=== PATIENT | male | born 1995 | race Caucasian/White ===

== ENCOUNTER 2022-12-30 22:26 | Emergency (ER) | payer BC, SELFPAY ==
--- NOTE | ~2022-12-30 | XR_ITS ---
EXAMINATION: XR chest 2V DATE: 12/30/2022 23:19 INDICATION: Upper chest pain TECHNIQUE: PA and lateral views of the chest were obtained. COMPARISON: None FINDINGS: The lungs are clear with no focal airspace opacities, pulmonary edema, pleural effusion or pneumothor ax. The cardiomediastinal silhouette is normal. Visualized bones and soft tissues are unremarkable. IMPRESSION: 1. No acute cardiopulmonary disease. Reviewed, dictated and finalized at location A. H CUTTING MACHINE OPERATOR
--- NOTE | 2022-12-30 22:29 | ECG_ITS ---
Measurements Intervals [place] Rate: 72 P: 15 ND: 156 QRS: 32 QRSD: 99 T: 8 QT: 373 QTc: 410 Interpretive Statements SINUS RHYTHM RSR' V1 BORDERLINE ECG NO PREVIOUS ECG AVAILABLE FOR COMPARISON Electronically Signed On 12-31-2022 15:09:08 [employer]IDE [employer]ITORY [employer]NAGER by Jose Alejandro Martini M.D.
[2022-12-30 22:40] VITALS: BP 133/94; PULSE 71; RESP 18; TEMP 36.6; O2SAT 100
[2022-12-30 22:49] LABS: Basophils Absolute Auto 0.1 K/mm3 (0.0-0.1); Basophils Percent Auto 1.1 % (0.2-1.2); Eosinophils Absolute Auto 0.1 K/mm3 (0-0.3); Eosinophils Percent Auto 1.2 % (0-4.4); Hematocrit 46.6 % (42.0-52.0); Hemoglobin 15.9 g/dL (14.0-18.0); Immature Granulocyte Absolute 0.01 K/mm3 (0.00-0.031); Immature Granulocyte Percent A 0.2 % (0-0.5); Lymphocytes Absolute Auto 2.64 K/mm3 (0.9-3.2); Lymphocytes Percent Auto 39.9 % (18.3-44.2); Mean Corpuscular HGB Conc 34.1 g/dl (32-36); Mean Corpuscular Hemoglobin 28.4 pg (26-34); Mean Corpuscular Volume 83.2 fl (80-100); Mean Platelet Volume 10.1 fl (7.4-10.4); Monocytes Absolute Auto 0.5 K/mm3 (0.1-0.6); Monocytes Percent Auto 7.1 % (2.6-8.5); Neutrophils Absolute Auto 3.3 K/mm3 (1.3-6.7); Neutrophils Percent Auto 50.5 % (45.5-73.1); Platelet Count Result 329 k/mm3 (150-375); Red Cell Distribution Width 12.5 % (11.5-14.5); White Blood Count 6.6 K/mm3 (4.5-10.0)
[2022-12-30 23:02] LABS: Alanine Aminotransferase 126 U/L (6-50); Albumin Level 4.8 g/dL (3.5-5.1); Alkaline Phosphatase 78 U/L (38-126); Anion Gap 9 mmol/L (8-16); Aspartate Amino Transferase 55 U/L (17-59); Bilirubin,Total 0.6 mg/dL (0.2-1.3); Blood Urea Nitrogen 11 mg/dL (9-20); Calcium 9.5 mg/dL (8.4-10.2); Carbon Dioxide 27 mmol/L (22-30); Chloride 96 mmol/L (98-107); Estimated CRCL calculation 171 ml/min; Estimated Glomerular Filt Rate > 60; Glucose 309 mg/dL (65-110); Lipase 102 U/L (23-300); Partial Thromboplastin Time 24.9 SECONDS (22.3-36.8); Prothrombin Time 12.5 Seconds (11.1-14.7); Sodium 132 mmol/L (137-145)
[2022-12-30 23:17] LABS: Troponin I < 0.012 ng/mL (0.000-0.034)
--- NOTE | 2022-12-30 23:56 | ED.CHESTPAIN ---
HPI - Chest Pain General Chief Complaint: Chest Pain <DES Weiner Last Filed: 12/31/22 00:14> Stated Complaint: chest pain <DES Weiner Last Filed: 12/31/22 00:14> Time Seen by Provider: 12/30/22 23:54 <DES Weiner Last Filed: 12/31/22 00:14> History of Present Illness HPI narrative: Patient is a 27-year-old healthy male here for evaluation of chest pain over the past 5 days. He describes the sensation as a tightness/burning in the center of his chest. He will occasionally radiate up over his left chest. Denies exertional component to pain, he has been going to the gym frequently over the past several days and the pain is not worse when he is doing cardio. He denies any shortness of breath, cough, fevers, chills, nausea, vomiting. Presents to the ED due to concerns over family history of MS in father. <DES Weiner Last Filed: 12/31/22 00:14> Related Data Allergies/Adverse Reactions: Allergies Allergy/AdvReac Type Severity Reaction Status Date / Time No Known Allergies Allergy Verified 12/30/22 22:52 <DES Weiner Last Filed: 12/31/22 00:14> Review of Systems Review of Systems: Gen.: Denies fevers or chills Eyes: Denies eye pain or visual change ENT: Denies congestion Respiratory: Denies shortness of breath or cough CV: Reports chest pain GI: Denies abdominal pain nausea, emesis or diarrhea denies burning, urgency, frequency or hematuria Musculoskeletal: Denies back pain or muscle pain Neuro: Denies numbness, tingling, weakness or focal weakness Skin: Denies rash Except as documented, all other systems reviewed and negative <DES Weiner Last Filed: 12/31/22 00:14> Exam Narrative: APPEARANCE: Well appearing, no pain in distress, well-nourished. Head: Normocephalic and atraumatic. EYES: PERRLA/EOMI, conjunctivae clear NOSE: No nasal drainage EARS: External ear normal in appearance THROAT: Oropharynx is clear. Mucous membranes are moist. NECK: Supple. No adenopathy, no masses. RESPIRATORY: Airway patent, respirations nonlabored. Clear to auscultation bilaterally, no rales, rhonchi, wheezing. CARDIOVASCULAR: Regular rate and rhythm without murmurs, rubs, or gallops. ABDOMINAL: Normoactive bowel sounds. Soft, nontender, nondistended. No rebound tenderness or guarding. MUSCULOSKELETAL: Extremities are warm and well-perfused. Moves all extremities well. No edema. NEURO: Normal speech. No focal neurologic deficits. SKIN: Skin is warm and dry. No rashes. PSYCHIATRIC: Normal affect/mood.. <Mae Anguiano PA-C - Last Filed: 12/31/22 00:14> Course SERGER/PA Physician Supervision For this encounter, I have reviewed the mid-level provider documentation, treatment plan and medical decision making. I have had [id number] time with the patient. Physical exam revealed an anxious appearing male sitting in bed. Patient's chest pain workup was negative including 2- troponins in a regular chest x-ray. His glucose was elevated at 309. Patient may have new onset diabetes. No evidence of DKA /HHS. Encouraged follow-up with his primary care physician for further management. . All questions answered. Patient in agreement w/ disposition. <Jc Urias MD - Last Filed: 12/31/22 03:44> Vital Signs Vital signs: Vital Signs Temperature 97.8 F 12/30/22 22:40 Pulse Rate 71 12/30/22 22:40 Respiratory Rate 18 12/30/22 22:40 Blood Pressure 133/94 H 12/30/22 22:40 Pulse Oximetry 100 12/30/22 22:40 Oxygen Delivery Room Air 12/30/22 22:40 Temperature 97.8 F 12/30/22 22:40 Pulse Rate 73 12/31/22 00:32 Respiratory Rate 17 12/31/22 00:32 Blood Pressure 136/85 12/31/22 00:08 Pulse Oximetry 98 12/31/22 00:32 Oxygen Delivery Room Air 12/30/22 22:40 <Mae Anguiano PA-C - Last Filed: 12/31/22 00:14> Vital Signs Temperature 9
[2022-12-31 00:06] VITALS: RESP 17; O2SAT 99
[2022-12-31 00:08] VITALS: BP 136/85; PULSE 71; RESP 18; O2SAT 99
[2022-12-31 00:09] VITALS: PULSE 75; RESP 14; O2SAT 98
[2022-12-31 00:26] VITALS: PULSE 74; RESP 14; O2SAT 97
[2022-12-31 00:32] VITALS: PULSE 73; RESP 17; O2SAT 98
== END 2022-12-31 00:46 | disposition home or self-care (01) ==
PROVIDERS: Emergency Medicine; Emergency Provider Physician Assistant; PCP Family Medicine
DX: R07.89 Other chest pain (principal); R94.31 Abnormal electrocardiogram [ECG] [EKG]
CPT/HCPCS: 36415; 71046; 80053; 83690; 84484; 85025; 85610; 85730; 93005; 99284

== ENCOUNTER 2023-01-08 15:03 | Outpatient (CLI) | payer BC, SELFPAY ==
[2023-01-08 20:11] LABS: Alanine Aminotransferase 114 U/L (6-50); Albumin Level 5.1 g/dL (3.5-5.1); Alkaline Phosphatase 78 U/L (38-126); Anion Gap 10 mmol/L (8-16); Aspartate Amino Transferase 60 U/L (17-59); Bilirubin,Total 0.5 mg/dL (0.2-1.3); Blood Urea Nitrogen 12 mg/dL (9-20); Calcium 9.8 mg/dL (8.4-10.2); Carbon Dioxide 27 mmol/L (22-30); Chloride 98 mmol/L (98-107); Estimated Glomerular Filt Rate > 60; Glucose 188 mg/dL (65-110); Potassium 4.3 mmol/L (3.4-5.0); Sodium 135 mmol/L (137-145)
[2023-01-08 21:03] LABS: Creatinine Urine 95.8 mg/dL
[2023-01-08 21:06] LABS: MALB Creatinine Ratio 36.6 mg/g (0-30); Microalbumin Urine Random 35.1 mg/L (0-16.7)
[2023-01-08 21:26] LABS: Hemoglobin A1C 9.6 % (<5.7)
[2023-01-09 00:13] LABS: Thyroid Stimulating Hormone 0.986 uIU/mL (0.465-4.680)
== END 2023-01-08 15:04 | disposition home or self-care (01) ==
LOC: ANHGOSHLAB 15:04
PROVIDERS: PCP Family Medicine; Visit Provider Nurse Practitioner
DX: R73.9 Hyperglycemia, unspecified (principal); E87.1 Hypo-osmolality and hyponatremia
CPT/HCPCS: 36415; 80053; 82043; 83036; 84443

== ENCOUNTER 2023-03-18 08:35 | Outpatient (CLI) | payer BC, SELFPAY ==
[2023-03-18 19:51] LABS: Alanine Aminotransferase 52 U/L (6-50); Albumin Level 4.9 g/dL (3.5-5.1); Alkaline Phosphatase 79 U/L (38-126); Anion Gap 9 mmol/L (8-16); Aspartate Amino Transferase 42 U/L (17-59); Bilirubin,Total 0.5 mg/dL (0.2-1.3); Blood Urea Nitrogen 11 mg/dL (9-20); Calcium 9.4 mg/dL (8.4-10.2); Carbon Dioxide 25 mmol/L (22-30); Chloride 103 mmol/L (98-107); Cholesterol 224 mg/dL (0-200); Estimated Glomerular Filt Rate > 60; Glucose 94 mg/dL (65-110); HDL Direct 35 mg/dL; Potassium 4.3 mmol/L (3.4-5.0); Sodium 137 mmol/L (137-145); Triglycerides 266 mg/dL (<150)
[2023-03-18 19:54] LABS: Hemoglobin A1C 6.1 % (<5.7)
[2023-03-18 20:02] LABS: LDL Cholesterol Direct 128 mg/dL
[2023-03-22 04:30] LABS: C-Peptide 2.12 ng/mL (0.80-3.85)
[2023-04-01 17:24] LABS: Islet Cell Antibody Screen NEGATIVE (NEGATIVE)
== END 2023-03-18 08:36 | disposition home or self-care (01) ==
PROVIDERS: PCP Internal Medicine; Visit Provider Nurse Practitioner
DX: E11.9 Type 2 diabetes mellitus without complications (principal)
CPT/HCPCS: 36415; 80053; 80061; 83036; 84681; 86341